=== PATIENT | male | born 1975 | race Caucasian/White ===

== ENCOUNTER 2018-07-22 11:01 | Emergency (ER) | payer OTHER ==
[~2018-07-22] VITALS: Ht 175.3 cm; Wt 104.3 kg
[~2018-07-22 11:01] MED LIST: ATIVAN1 MG PO; BUSPIRONE HCL10 MG; PRILOSEC 20 MG20 MG; PROZAC20 MG; RANITIDINE HCL300 M1; ULTRAM 50MG TAB50 MG PO
[2018-07-22] MEDS ORDERED: HYDROCHLOROTH12.5 M1 PO (11:15)
[2018-07-22] MEDS ORDERED: VENLAFAXINE HCL25 MG PO (11:15)
[2018-07-22] MEDS ORDERED: COZAAR 25 MG TA25 M1 PO (11:15)
[2018-07-22] MEDS ORDERED: MINIPRESS1 MG PO (11:16)
[2018-07-22] MEDS ORDERED: ATIVAN1 MG PO (11:16)
[2018-07-22] MEDS ORDERED: ZOLOFT50 MG PO (11:16)
[2018-07-22 11:36] LABS: ABSOLUTE BASOPHILS 0.1 thou/uL (0.0-0.2); ABSOLUTE EOSINOPHILS 0.1 thou/uL (0.0-0.7); ABSOLUTE LYMPHOCYTES 2.7 thou/uL (0.8-5.3); ABSOLUTE MONOCYTES 0.4 thou/uL (0.0-1.2); ABSOLUTE NEUTROPHILS 4.3 thou/uL (1.6-8.1); EOSINOPHILS 1.1 %; HEMATOCRIT 43.2 % (42.0-52.0); HEMOGLOBIN 14.4 gm/dL (14.0-18.0); LYMPHOCYTES 35.1 %; MCH 28.1 pg (26.0-34.0); MCHC 33.3 g/dL (28.0-37.0); MCV 84.5 fL (80.0-100.0); MONOCYTES 5.2 %; MPV 8.4 fl. (7.2-11.1); NUCLEATED RBCS 0 /100WBC; PLATELET COUNT* 317 thou/uL (150-400); POLYS 57.6 %; RBC 5.11 mil/uL (4.50-6.00); RDW-CV 14.3 % (10.5-14.5); WBC 7.6 thou/uL (4.0-11.0)
[2018-07-22 11:45] LABS: APTT 28.9 Seconds (25.0-31.3)
[2018-07-22 11:52] LABS: CALCIUM 9.1 mg/dL (8.5-10.1); POTASSIUM 3.5 mmol/L (3.5-5.1)
[2018-07-22 11:57] LABS: ALBUMIN 3.7 g/dL (3.4-5.0); TOTAL BILIRUBIN 0.2 mg/dL (<0.1-1.0); TOTAL PROTEIN 7.7 g/dL (6.4-8.2)
[2018-07-22 12:13] LABS: URINE BILIRUBIN NEGATIVE (Negative); URINE BLOOD NEGATIVE (Negative); URINE CLARITY CLEAR; URINE COLOR YELLOW; URINE GLUCOSE-RANDOM NEGATIVE (Negative); URINE KETONES NEGATIVE (Negative); URINE LEUKOCYTES-REFLEX NEGATIVE (Negative); URINE NITRITE-REFLEX NEGATIVE (Negative); URINE PROTEIN NEGATIVE (Negative); URINE SPECIFIC GRAVITY 1.015 (1.005-1.030); URINE UROBILINOGEN 0.2 E.U./dl (0.2-1.0)
[2018-07-22 12:18] VITALS: BP 137/90
== END 2018-07-22 12:19 | disposition home or self-care (01) ==
LOC: M.ERS 11:01
PROVIDERS: Family Medicine
DX: N48.30 Priapism, unspecified (principal); K21.9 Gastro-esophageal reflux disease without esophagitis; F41.0 Panic disorder [episodic paroxysmal anxiety]; Z88.8 Allergy status to other drugs, medicaments and biological substances; Z88.6 Allergy status to analgesic agent; Z90.49 Acquired absence of other specified parts of digestive tract

== ENCOUNTER 2021-07-26 19:25 | Emergency (ER) | payer OTHER ==
[~2021-07-26] VITALS: Ht 175.3 cm; Wt 119.8 kg
[~2021-07-26 19:25] MED LIST changes: +COZAAR 25 MG TA25 M1 PO; +HYDROCHLOROTH12.5 M1 PO; +MINIPRESS1 MG PO; +VENLAFAXINE HCL25 MG PO; +ZOLOFT100 MG PO
[2021-07-26] MEDS ORDERED: BUPROPION XL300 MG PO (19:58)
[2021-07-26] MEDS ORDERED: HYDROXYZINE HCL25 M2 PO (19:59)
[2021-07-26] MEDS ORDERED: LOPERAMIDE2 MG PO (20:00)
[2021-07-26] MEDS ORDERED: LITHIUM CARBON300 M3 PO (20:00)
[2021-07-26] MEDS ORDERED: SYNTHROID50 MCG PO (20:00)
[2021-07-26 20:01] LABS: ABSOLUTE BASOPHILS 0.1 thou/uL (0.0-0.2); ABSOLUTE NEUTROPHILS 5.6 thou/uL (1.6-8.1); BASOPHILS 0.8 %; LYMPHOCYTES 31.9 %; NUCLEATED RBCS 0 /100WBC; POLYS 59.4 %
[2021-07-26] MEDS ORDERED: METFORMIN HCL500 M3 PO (20:01)
[2021-07-26] MEDS ORDERED: MELATONIN3 M1 PO (20:01)
[2021-07-26] MEDS ORDERED: OLANZAPINE15 M1 PO (20:01)
[2021-07-26] MEDS ORDERED: OMEPRAZOLE40 MG PO (20:02)
[2021-07-26] MEDS ORDERED: EFFER-K 20 MEQ20 ME1 PO (20:02)
[2021-07-26 20:03] LABS: ABSOLUTE EOSINOPHILS 0.2 thou/uL (0.0-0.7); ABSOLUTE MONOCYTES 0.5 thou/uL (0.0-1.2); EOSINOPHILS 2.4 %; HEMATOCRIT 40.4 % (42.0-52.0); HEMOGLOBIN 13.8 gm/dL (14.0-18.0); MCHC 34.2 g/dL (28.0-37.0); MCV 81.8 fL (80.0-100.0); MONOCYTES 5.5 %; MPV 7.8 fl. (7.2-11.1); PLATELET COUNT* 266 thou/uL (150-400); RBC 4.93 mil/uL (4.50-6.00); RDW-CV 14.3 % (10.5-14.5); WBC 9.4 thou/uL (4.0-11.0)
[2021-07-26] MEDS ORDERED: CLONIDINE HCL0.1 M1 PO (20:03)
[2021-07-26 20:08] LABS: CALCIUM 8.6 mg/dL (8.5-10.1); POTASSIUM 3.5 mmol/L (3.5-5.1)
[2021-07-26 20:19] LABS: ALBUMIN 3.8 g/dL (3.4-5.0); MAGNESIUM 1.9 mg/dL (1.8-2.4); TOTAL BILIRUBIN 0.2 mg/dL (<0.1-1.0); TOTAL PROTEIN 7.7 g/dL (6.4-8.2)
[2021-07-26 21:33] VITALS: BP 144/92
--- NOTE | 2021-07-27 10:00 | EKG ---
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
== END 2021-07-26 21:35 | disposition home or self-care (01) ==
LOC: M.ERS 19:25
PROVIDERS: Emergency Medicine
DX: R07.89 Other chest pain (principal); F41.9 Anxiety disorder, unspecified; R42 Dizziness and giddiness; F43.10 Post-traumatic stress disorder, unspecified; K21.9 Gastro-esophageal reflux disease without esophagitis; Z88.8 Allergy status to other drugs, medicaments and biological substances; Z79.899 Other long term (current) drug therapy